=== PATIENT | male | born 2000 | race Caucasian/White ===

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

== ENCOUNTER 2019-11-04 09:25 | Emergency (ER) | payer OTHER ==
[~2019-11-04] VITALS: Ht 177.8 cm; Wt 83.9 kg
[2019-11-04 09:34] VITALS: Ht 177.8 cm; Wt 83.9 kg
[2019-11-04 11:04] VITALS: BP 116/55
== END 2019-11-04 11:05 | disposition home or self-care (01) ==
LOC: ED 09:25
DX: S00.211A Abrasion of right eyelid and periocular area, initial encounter (principal); K21.9 Gastro-esophageal reflux disease without esophagitis; X58.XXXA Exposure to other specified factors, initial encounter; Y93.89 Activity, other specified; Y92.89 Other specified places as the place of occurrence of the external cause; Y99.8 Other external cause status